=== PATIENT | male | born 1950 | race Caucasian/White ===

== ENCOUNTER 2018-03-08 11:32 | Observation (INO) | payer OTHER ==
[~2018-03-08] VITALS: Ht 170.2 cm; Wt 65.9 kg
[2018-03-08 12:55] LABS: BASOPHIL (%) 0.4 % (0-1); EOSINOPHIL (%) 0.5 % (0-5); HEMATOCRIT 34.2 % (38.0-50.0); HEMOGLOBIN 11.7 G/DL (12.5-16.6); IMMATURE GRANULOCYTE (%) 0.5 % (0.0-0.7); LYMPHOCYTE (%) 6.7 % (15-42); LYMPHOCYTE COUNT 0.6 K/uL (1.0-2.8); MCH 29.7 PG (29.0-34.0); MCHC 34.2 G/DL (30.0-36.0); MCV 86.8 FL (86-99); MONOCYTE (%) 4.5 % (3-12); MONOCYTE COUNT 0.4 K/uL (0-0.8); NEUTROPHIL (%) 87.4 % (45-76); NEUTROPHIL COUNT 7.2 K/uL (1.8-6.4); PLATELET COUNT 259 K/uL (156-360); RBC DIS.WIDTH-CV 16.6 % (11.8-14.6); RBC DIS.WIDTH-SD 53.2 % (39-53); RED BLOOD COUNT 3.94 M/uL (4.00-5.50); WHITE BLOOD COUNT 8.3 K/uL (4.1-10.2)
[2018-03-08 13:03] LABS: ALBUMIN 3.8 g/dL (3.2-4.8); CHLORIDE 106 mEq/L (99-109); POTASSIUM 3.4 mEq/L (3.7-5.4); SODIUM 140 mEq/L (136-147)
[2018-03-08 13:05] LABS: GLUCOSE 124 mg/dL (70-99); TOTAL PROTEIN 6.7 g/dL (6.4-8.3)
[2018-03-08 13:07] LABS: TOTAL BILIRUBIN 0.8 mg/dL (0.0-1.0)
[2018-03-08 13:09] LABS: ALKALINE PHOSPHATASE 136 IU/L (3-129); CREATININE 0.9 mg/dL (0.6-1.3); GFR ESTIMATE (CALCULATED) > 59 mL/min/ (58.99-99999)
[2018-03-08 13:10] LABS: UREA NITROGEN (BUN) 7 mg/dL (9-23)
[2018-03-08 13:11] LABS: AST (GOT) 17 IU/L (2-34)
[2018-03-08 13:12] LABS: ALT (GPT) 17 IU/L (3-49); LIPASE 13 U/L (1.0-51.0)
[2018-03-08] MEDS ORDERED: HYDROMORPHONE HC4 MG PO (18:08)
[2018-03-08] MEDS ORDERED: FENTANYL1 EAC1 TD (18:09)
[2018-03-08] MEDS ORDERED: AMOX TR-K CLV1 EAC4 PO (18:10)
[2018-03-08] MEDS ORDERED: METHYLPREDNISOLO4 M1 PO (18:10)
[2018-03-08] MEDS ORDERED: FENTANYL1 EAC4 TD (18:11)
[2018-03-08] MEDS ORDERED: TAMSULOSIN HCL0.4 MG PO (18:11)
[2018-03-08] MEDS ORDERED: COLCRYS0.6 MG PO (18:11)
[2018-03-08] MEDS ORDERED: ALLOPURINOL100 MG PO (18:11)
[2018-03-08] MEDS ORDERED: LACTULOSE10 GM/151 PO (18:12)
[2018-03-08] MEDS ORDERED: AMLODIPINE BESYL5 MG PO (18:12)
[2018-03-08] MEDS ORDERED: ONDANSETRON ODT8 MG PO (18:12)
[2018-03-08] MEDS ORDERED: HYDROMORPHONE HC8 MG PO (18:13)
[2018-03-08] MEDS ORDERED: PANTOPRAZOLE SO40 MG PO (18:13)
[2018-03-08] MEDS ORDERED: PREVACID15 MG PO (18:16)
[2018-03-08] MEDS ORDERED: SENNA8.6 MG PO (18:17)
[2018-03-08] MEDS ORDERED: TYLENOL EXTRA500 MG PO (18:17)
[2018-03-08 19:24] VITALS: BP 119/72
[2018-03-08 23:24] VITALS: BP 104/66
[2018-03-09 04:36] VITALS: BP 102/67
[2018-03-09 06:38] LABS: BASOPHIL (%) 0.7 % (0-1); BASOPHIL COUNT 0.1 K/uL (0-0.1); EOSINOPHIL (%) 1.2 % (0-5); EOSINOPHIL COUNT 0.1 K/uL (0-0.3); HEMATOCRIT 30.2 % (38.0-50.0); IMMATURE GRANULOCYTE (%) 0.4 % (0.0-0.7); LYMPHOCYTE (%) 19.4 % (15-42); LYMPHOCYTE COUNT 1.4 K/uL (1.0-2.8); MCH 29.2 PG (29.0-34.0); MCHC 33.1 G/DL (30.0-36.0); MCV 88.3 FL (86-99); MONOCYTE (%) 9.8 % (3-12); MONOCYTE COUNT 0.7 K/uL (0-0.8); NEUTROPHIL (%) 68.5 % (45-76); NEUTROPHIL COUNT 5.1 K/uL (1.8-6.4); PLATELET COUNT 225 K/uL (156-360); RBC DIS.WIDTH-CV 17.1 % (11.8-14.6); RBC DIS.WIDTH-SD 55.4 % (39-53); RED BLOOD COUNT 3.42 M/uL (4.00-5.50); WHITE BLOOD COUNT 7.4 K/uL (4.1-10.2)
[2018-03-09 06:59] LABS: CHLORIDE 106 MEQ/L (99-109); CREATININE 0.8 MG/DL (0.6-1.3); GFR ESTIMATE (CALCULATED) > 59 mL/min/ (58.99-99999); POTASSIUM 3.5 MEQ/L (3.7-5.4); SODIUM 142 MEQ/L (136-147); UREA NITROGEN (BUN) 11 mg/dL (9-23)
[2018-03-09 07:00] LABS: GLUCOSE 83 mg/dL (70-99)
[2018-03-09 07:55] VITALS: BP 113/70
[2018-03-09] MEDS ORDERED: PROTONIX40 MG PO (10:48)
[2018-03-09] MEDS ORDERED: ZOFRAN4 MG PO (10:48)
== END 2018-03-09 12:08 | disposition home or self-care (01) ==
LOC: EME 11:32 → EDOF 18:18 → ENRESERV 18:51 → 4SOUTH 19:18
PROVIDERS: Emergency Medicine; Hospitalist
DX: K31.1 Adult hypertrophic pyloric stenosis (principal); Z98.890 Other specified postprocedural states; E87.6 Hypokalemia; R18.8 Other ascites; C16.9 Malignant neoplasm of stomach, unspecified; C78.6 Secondary malignant neoplasm of retroperitoneum and peritoneum; Z92.21 Personal history of antineoplastic chemotherapy; N13.8 Other obstructive and reflux uropathy; Z82.3 Family history of stroke; Z84.1 Family history of disorders of kidney and ureter; Z83.3 Family history of diabetes mellitus; Z82.49 Family history of ischemic heart disease and other diseases of the circulatory system
CPT/HCPCS: 74177; 80048; 80053; 82948; 83690; 85025; C9113; G0378; J0295; J1170; J1644; J2405; J3480; J7030; J7050